=== PATIENT | male | born 1970 | race Caucasian/White ===

== ENCOUNTER 2017-06-08 17:41 | Emergency (ER) | payer MEDICAID ==
[2017-06-08 18:59] LABS: BILIRUBIN,URINE NEGATIVE (NEGATIVE)
[2017-06-08 19:00] LABS: HCT - HEMATOCRIT 37.9 % (42.0-52.0); HGB - HEMOGLOBIN 13.4 g/dL (14.0-18.0); MEAN CORPUSCULAR HEMOGLOBIN 30.8 pg (27.0-31.0); MEAN CORPUSCULAR HGB CONC 35.4 g/dL (32.0-36.0); MEAN CORPUSCULAR VOLUME 86.9 fL (80.0-94.0); MEAN PLATELET VOLUME 7.6 fL (7.4-11.4); RED BLOOD COUNT 4.36 10^6/uL (4.70-6.10); RED CELL DISTRIBUTION WIDTH 13.1 % (12.0-15.0); WHITE BLOOD COUNT 10.4 x10^3/uL (4.8-10.8)
[2017-06-08 19:15] LABS: ALBUMIN/GLOBULIN RATIO 1.1 (1.0-2.2); BILIRUBIN,TOTAL 0.5 mg/dL (0.2-1.0); BUN - BLOOD UREA NITROGEN 13 mg/dL (6-20); CALCIUM 8.6 mg/dL (8.5-10.3); CARBON DIOXIDE - CO2 28 mmol/L (21-32); CHLORIDE 103 mmol/L (101-111); CREATININE 0.8 mg/dL (0.6-1.2); GFR - MDRD 104 (>89); GLUCOSE 125 mg/dL (70-100); LIPASE 26 U/L (22-51); POTASSIUM 3.6 mmol/L (3.5-5.0); SALICYLATE < 6.0 mg/dL; SODIUM 138 mmol/L (135-145)
[2017-06-08 19:20] LABS: ACETAMINOPHEN < 10 ug/mL (10-30)
--- NOTE | 2017-06-08 20:12 | ED Physician Documentation ---
PD HPI MHE - Stated complaint Stated Complaint: MHE - Chief complaint Chief Complaint: MHE - History obtained from History obtained from: Patient - History of Present Illness Primary symptom: Anxiety, Other (paranoia). No: Suicidal ideation, Suicide attempt, Aggressive behavior Timing - onset: How many days ago (few) Contributing factors: No: Substance abuse - ETOH, Substance abuse - drugs Similar symptoms before: Diagnosis (apparently Dx with depression as he says he has been treated with SSRIs without much improvement though. He does not recognize names of antipsychotics.) Recently seen: Clinic (seen [facility] early this past week, and given Rx for antidepressant, which he does not recall name of. He says it was lost/stolen at [facility] bathroom. He had taken it for 3 days so far.) Review of Systems Constitutional: denies: Fever, Chills Nose: denies: Rhinorrhea / runny nose, Congestion Throat: denies: Sore throat Cardiac: denies: Chest pain / pressure Respiratory: denies: Cough GI: denies: Abdominal Pain, Nausea, Vomiting, Diarrhea : denies: Dysuria, Frequency Skin: denies: Rash, Lesions Musculoskeletal: denies: Neck pain, Back pain Neurologic: denies: Focal weakness, Numbness, Near syncope, Altered mental status, Headache, Head injury Psychiatric: reports: Delusions (worried that people are wanting to track him down and shoot him.), Anxiety. denies: Suicidal, Homicidal Endocrine: denies: Weight loss Immunocompromised: denies: Immunocompromised PD PAST MEDICAL HISTORY - Past Medical History Cardiovascular: None Respiratory: None Neuro: None Endocrine/Autoimmune: None GI: None : None Psych: Depression, Anxiety, Other Musculoskeletal: Osteoarthritis, Chronic back pain - Past Surgical History Past Surgical History: No - Present Medications Home Medications: Ambulatory Orders Medication Instructions Recorded Confirmed Cyclobenzaprine [Flexeril] 10 mg PO TID PRN #20 tablet 07/20/14 03/24/15 Ibuprofen [Motrin] 800 mg PO Q8H PRN #30 tablet 07/20/14 03/24/15 Cephalexin 500 mg PO TID #20 capsule 03/24/15 - Allergies Allergies/Adverse Reactions: Allergies Allergy/AdvReac Type Severity Reaction Status Date / Time No Known Drug Allergies Allergy Verified 11/10/14 06:58 - Living Situation Living Situation: reports: Alone Living Arrangement: reports: Homeless, Other (had been in shelter for 10 months and released about 10 days ago. ) - Social History Does the pt smoke?: Yes Smoking Status: Current every day smoker Does the pt drink ETOH?: Yes Does the pt have substance abuse?: No - Immunizations Immunizations are current?: No Immunizations: TDAP >10years/unknown - POLST Patient has POLST: No PD ED PE NORMAL - Vitals Vital signs reviewed: Yes - General General: Alert and oriented X 3, Well developed/nourished, Other (has some paranoid delusions that some people (he cannot name particular person, just "they") are meaning to get him and shoot him. ) - HEENT HEENT: Atraumatic, EOMI (no nystagmus), Moist mucous membranes, Pharynx benign - Neck Neck: Supple, no meningeal sign, No adenopathy, No JVD - Cardiac Cardiac: RRR, No murmur - Respiratory Respiratory: Clear bilaterally - Abdomen Abdomen: Soft, Non tender - Back Back: No CVA TTP - Derm Derm: Normal color, Warm and dry - Extremities Extremities: No tenderness to palpate, Normal ROM s pain - Neuro Neuro: Alert and oriented X 3, ladies locker room attendant 2-12 intact, No motor deficit, No sensory deficit, Normal speech Results - Vitals Vitals: Vital Signs - 24 hr 06/08/17 06/08/17 06/08/17 17:44 23:11 23:13 Temperature 36.7 C Heart Rate 88 69 Respiratory 16 16 17 Rate Blood Pressure 125/75 113/74 O2 Saturation 98 100 Oxygen O2 Source Room air - Labs Labs: Laboratory Tests 06/08/17 06/08/17 06/08/17 18:29 18:49 18:49 WBC 10.4 RBC 4.36 L Hgb 13.4 L Hct 37.9 L MCV 86.9 MCH 30.8 MCHC 35.4 RDW 13.1 Plt Count 237 MPV 7.6 Sodium 138 Potassium 3.6 Chloride 103 Carbon Dioxide 28 Anion Gap 7.0 BUN 13 Creatinine 0.8 Estimated GFR (MDRD) 104 Glucose 125 H Calcium 8.6 Total Bilirubin 0.5 AST 23 ALT 20 Alkaline Phosphatase 60 Total Protein 7.0 Albumin 3.7 Globulin 3.3 Albumin/Globulin Ratio 1.1 Lipase 26 Urine Color YELLOW Urine Clarity CLEAR Urine pH 6.0 Ur Specific [place] 1.020 Urine Protein NEGATIVE Urine Glucose (UA) NEGATIVE Urine Ketones NEGATIVE Urine Occult Blood NEGATIVE Urine Nitrite NEGATIVE Urine Bilirubin NEGATIVE Urine Urobilinogen 0.2 (NORMAL) Ur Leukocyte Esterase NEGATIVE Salicylates < 6.0 Urine Opiates Screen NEGATIVE Ur Oxycodone Screen NEGATIVE Urine Methadone Screen NEGATIVE Ur Propoxyphene Screen NEGATIVE Acetaminophen < 10 L Ur Barbiturates Screen NEGATIVE Ur Tricyclics Screen NEGATIVE Ur Phencyclidine Scrn NEGATIVE Ur Amphetamine Screen NEGATIVE U Methamphetamines Scrn NEGATIVE U Benzodiazepines Scrn NEGATIVE Urine Cocaine Screen NEGATIVE U Cannabinoids Screen NEGATIVE Ethyl Alcohol < 5.0 PD MEDICAL DECISION MAKING - ED course Complexity details: considered differential (not suicidal nor homocidal. Has some paranoia and history of depression. Has been on new antidepressant for just under a week. Consider adding antipsychotic for at least short term, and see if antidepressant helps, though he says he has not had much improvement with other SSRIs. Could benefit from some antipsychotic health analytics consultant. Gave Zyprexa PO here. He does not have place to stay (homeless right now and [facility] be closed by now). Does not seem gravely disabled per se. Will sleep here tonight and have help with resources tomorrow. Will need to find out which med he got Rx from [facility] as he lost it and needs new Rx. Would also likely Rx Zyprexa 5 mg HS for few weeks anyway. Try to connect him with [facility] or [facility] or which ever his insurance best fits. ), d/w patient
[2017-06-08] MEDS ORDERED: OLANZapine ODT 5 MG TABLET TL ONE ×2 (20:13→20:28)
[2017-06-09 06:13] VITALS: BP 126/71
[2017-06-09] MEDS ORDERED: OLANZapine ODT 5 MG TABLET TL ONE ×2 (14:04→14:12)
--- NOTE | 2017-06-09 14:06 | ED Physician Documentation ---
ED Addendum - Addendum Addendum: 06/09/17 14:05 The patient reportedly did okay overnight and rested through the morning. He ate breakfast this morning. Has been cooperative. He does still have some paranoid delusions about people waiting in the parking lot to try to shoot him. Social work talked with him and try to find placement and respite or some other space. No beds were available apparently. He is not suicidal nor homicidal. He is able to manage basic functions and wants to go to a longterm in lieu of respiratory or other placement. He does have an appointment set up with his primary care tomorrow and his counselor tomorrow as well. He was able to find his medications in his pocket and so he is given a dose of his usual group be appropriate in. We will also give a dose of Zyprexa 5 mg orally here. I will defer any prescription then to his follow-up appointment tomorrow.
== END 2017-06-09 14:15 | disposition home or self-care (01) ==
LOC: ED 17:41
DX: F22 Delusional disorders (principal); F32.9 Major depressive disorder, single episode, unspecified; F41.9 Anxiety disorder, unspecified; Z59.0 Homelessness; F17.200 Nicotine dependence, unspecified, uncomplicated
CPT/HCPCS: 36415; 80053; 80306; 80307; 80320; 80329; 81003; 83690; 85027; 99284; A9270

== ENCOUNTER 2017-06-11 08:33 | Emergency (ER) | payer MEDICAID ==
[2017-06-11 09:22] LABS: BASOPHILS % (AUTO) 0.6 %; EOSINOPHILS # (AUTO) 0.1 10^3/uL (0.0-0.7); EOSINOPHILS % (AUTO) 1.9 %; HCT - HEMATOCRIT 41.2 % (42.0-52.0); HGB - HEMOGLOBIN 14.2 g/dL (14.0-18.0); LYMPHOCYTES % (AUTO) 18.9 %; MEAN CORPUSCULAR HEMOGLOBIN 30.1 pg (27.0-31.0); MEAN CORPUSCULAR HGB CONC 34.3 g/dL (32.0-36.0); MEAN CORPUSCULAR VOLUME 87.5 fL (80.0-94.0); MEAN PLATELET VOLUME 7.1 fL (7.4-11.4); MONOCYTES # (AUTO) 0.5 10^3/uL (0.0-1.0); MONOCYTES % (AUTO) 8.5 %; NEUTROPHILS # (AUTO) 3.9 10^3/uL (1.5-6.6); NEUTROPHILS % (AUTO) 70.1 %; NUCLEATED RED BLOOD CELLS AUTO 0.1 /100WBC; RED BLOOD COUNT 4.71 10^6/uL (4.70-6.10); RED CELL DISTRIBUTION WIDTH 13.1 % (12.0-15.0); UNCORRECTED WHITE BLOOD COUNT 5.5 x10^3/uL; WHITE BLOOD COUNT 5.5 x10^3/uL (4.8-10.8)
[2017-06-11 09:35] LABS: ALBUMIN/GLOBULIN RATIO 1.2 (1.0-2.2); BILIRUBIN,TOTAL 0.5 mg/dL (0.2-1.0); BUN - BLOOD UREA NITROGEN 15 mg/dL (6-20); CALCIUM 9.3 mg/dL (8.5-10.3); CARBON DIOXIDE - CO2 28 mmol/L (21-32); CHLORIDE 103 mmol/L (101-111); CREATININE 0.8 mg/dL (0.6-1.2); GFR - MDRD 104 (>89); GLUCOSE 70 mg/dL (70-100); LIPASE 29 U/L (22-51); POTASSIUM 3.8 mmol/L (3.5-5.0); SODIUM 142 mmol/L (135-145); TOTAL PROTEIN 7.1 g/dL (6.7-8.2)
[2017-06-11 10:03] LABS: BILIRUBIN,URINE NEGATIVE (NEGATIVE)
[2017-06-11 10:05] LABS: UA CHARGE (STRIP ONLY) YES; UR CULTURE IF IND NOT INDICATED
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
[2017-06-11] MEDS ORDERED: OLANZapine ODT 5 MG TABLET TL ONE ×3 (19:53→20:11)
--- NOTE | 2017-06-11 19:59 | ED Physician Documentation ---
ED Addendum - Addendum Addendum: 06/11/17 19:[address] Marinelli at shift change with plan for him to board overnight in the emergency department for social workers to continue to try to obtain placement for the psychotic gentleman in the morning. At around 8 PM he did become a little more agitated, was pacing the halls, delusional. Dr. Marinelli had told me that Zyprexa had previously worked well for him 10 mg orally was ordered.
[2017-06-11] MEDS ORDERED: WATER FOR INJECTION,STERILE 10 ML ONE (20:05)
[2017-06-11] MEDS ORDERED: OLANZapine 10 MG VIAL IM ONE (20:05)
[2017-06-12 06:02] VITALS: BP 131/87
== END 2017-06-12 17:10 | disposition short-term general hospital (02) ==
LOC: EDUNIT# → ED 08:33
DX: F22 Delusional disorders (principal); F23 Brief psychotic disorder; F41.9 Anxiety disorder, unspecified; F32.9 Major depressive disorder, single episode, unspecified; F17.200 Nicotine dependence, unspecified, uncomplicated; Z59.0 Homelessness
CPT/HCPCS: 36415; 80053; 80306; 80320; 81003; 83690; 85025; 99284; 99285; A9270; 81001; 87086; 99283

== ENCOUNTER 2017-06-12 17:15 | Outpatient (CLI) | payer MEDICAID | END 2017-06-12 17:16 | LOC: EMS 17:15 | PROVIDERS: ATTEND Surgery | DX: F22 Delusional disorders (principal) | CPT/HCPCS: A0425; A0428 ==